=== PATIENT | male | born 1965 | race Caucasian/White ===

== ENCOUNTER 2020-01-21 07:35 | Day surgery (SDC) | payer OTHER ==
[~2020-01-21] VITALS: Ht 190.5 cm; Wt 123.2 kg
[~2020-01-21 07:35] MED LIST: CYCLOBENZAPRINE10 MG PO; METHYLPREDNISOLO4 M1 PO
--- NOTE | 2020-01-21 08:08 | NUR ---
PRE-PROCEDURE CHECK IN COMPLETE. PT RESTING IN LOCKED AND LOWERED BED, CALL LIGHT WITHIN REACH. NO FURTHER REQUESTS AT THIS TIME.
--- NOTE | 2020-01-21 09:12 | NUR ---
01/21/20 0912 Keyona Rangel 0855- PT TO PACU IN SUPINE POSITION. PT RESPONDS TO TACTILE AND VERBAL STIMULI. PT SNORING AND REPOSITIONED. SP02 >90% ON 2 L O2 VIA NC. BREATHING EASY AND UNLABORED WITH REPOSITIONING. 0904- PT ENCOURAGED TO TAKE DEEP BREATHS. O2 TITRATED DOWN TO ROOM AIR SPO2 >90%. PT REPOSITIONED TO SF WITH PILLOWS TO AID WITH SNORING. PT DENIES PAIN NAUSEA OR DIZZINESS. 0910- PT ASKING ABOUT PROCEDURE, FALLS QUICKLY BACK TO SLEEP. SNORING STILL INTERMITTANT, REQUIRING PROMPTING TO TAKE DEEP BREATHGS. VSS. PT CONTINUES TO DENY PAIN NAUSEA OR DIZZINESS.
--- NOTE | 2020-01-21 09:56 | OR ---
[facility] [address] [place], [place] [address] Signed DATE OF OPERATION: 01/21/2020 SURGEON: Bernard Wiley MD PREOPERATIVE DIAGNOSIS: Screening. POSTOPERATIVE DIAGNOSES: 1. A 4 mm rectal polyps x3 at 15 cm, x1 at 14 cm and x1 at 8 cm. 2. A small internal hemorrhoid x1. 3. Kxai-dd-zqptmrcuzz indurated and swollen prostate gland. PROCEDURE: Colonoscopy with hot biopsy. ESTIMATED BLOOD LOSS: None. INDICATIONS: Augie is a 54-year-old gentleman, asked to see me for his initial screening colonoscopy. He gives no lower GI complaints. There is no family history of colon cancer or polyps. He reminded me that I did his 's colonoscopy a few years ago. Consequently, they are somewhat familiar to this whole process. In the office, I gave him a pamphlet on colonoscopy and we looked at that together along with the risks including, but not limited to gas bloating, crampy abdominal pain, bleeding, perforation requiring surgery, and missed diagnosis. We also discussed the need for IV conscious sedation. He does use some CBD oil and THC gummies. I think mainly for a sciatica pain. I explained to Augie that sometimes Versed and fentanyl are not enough to get people completely asleep. In that regard, they need monitored anesthesia care with propofol. That can require rescheduling. He had expressed understanding and wished to proceed. DESCRIPTION OF PROCEDURE: Augie was taken into our endoscopy suite and placed in the left lateral decubitus position. He was given a total of 11 mg of Versed and 200 mcg of fentanyl. Even then he was moving around and we had to have several nurses stand alongside the bed. Fortunately, he is very easy to pass the scope. We made it almost into the cecum itself. However, he was pushing back with his abdomen and we simply could not get the scope to pass any further even with sedation and abdominal compression. Overall, his prep was good. He had a little bit of liquid stool in the cecum as is common. That is the only area, I could not directly visualize. It would be less than 10% of the cecum Electronically Signed By: BERNARD WILEY MD 01/21/20 0956 PATIENT NAME: LUCERO ALVAREZ OPERATIVE REPORT DATE OF : 67 REPORT #: [id number] PHYSICIAN: BERNARD WILEY MD PCP: ALOK TAYLOR MD REPORT IS CONFIDENTIAL AND NOT TO BE RELEASED WITHOUT AUTHORIZATION [facility] [address] [place], [place] [address] Signed itself. We could easily see the ileocecal valve. We had taken pictures throughout for photodocumentation. The scope was then slowly withdrawn. The colon itself was unremarkable. He had 5 small polyps removed in his rectum, all placed into one jar. Upon retroflexion of scope, he has a small internal hemorrhoid columns. On digital rectal exam, he does have a rubz-lo-vbzawyvjcv indurated and swollen prostate gland. After this, the gas had been suctioned out and the colonoscope removed. Overall, Augie tolerated the procedure well. RECOMMENDATIONS: I will see just back in my office in 7 to 14 days to review his results. In the future, he needs monitored anesthesia care with propofol. Bernard Wiley MD ALB/MODL /[id number] cc: MD Bernard Montero MD Copies: ALOK TAYLOR DMD, ANDREW L MD ~ Electronically Signed By: BERNARD WILEY MD 01/21/20 0956 PATIENT NAME: LUCERO ALVAREZ OPERATIVE REPORT DATE OF : 67 REPORT #: [id number] PHYSICIAN: BERNARD WILEY MD PCP: ALOK TAYLOR MD REPORT IS CONFIDENTIAL AND NOT TO BE RELEASED WITHOUT AUTHORIZATION
--- NOTE | 2020-01-25 16:16 | PATH ---
[facility] [address] [place], [place] [address] Signed SPECIMEN(S): A RECTAL POLYP SPECIMEN SOURCE: A. RECTAL POLYP CLINICAL HISTORY: Screening. DX: Internal hemorrhoids, polyps. Colonoscopy with possible biopsy and/or polypectomy. MICROSCOPIC DESCRIPTION: Histologic sections of all submitted blocks are examined by light microscopy. These findings, together with the gross examination, support the pathologic diagnosis. FINAL PATHOLOGIC DIAGNOSIS: Rectum, polyp, polypectomy: - Fragments of hyperplastic polyp. - Negative for dysplasia or malignancy. NAL:cml:C2NR GROSS DESCRIPTION: The specimen, labeled "Devin Alvarez, #1," and designated on the requisition "rectal polyp," is received in formalin and consists of five sauceda soft tissue fragments that measure 0.3-0.4 cm in greatest dimension. The specimen is entirely submitted in cassette (A1). FB (under the direct supervision of a pathologist) The Gross Description was prepared using a voice recognition system. The report was reviewed for accuracy; however, sound-alike word errors, addition and/or deletions may occur. If there is any question about this report, please contact Client Services. PERFORMING LABORATORY: The technical component was performed by [facility], [address] [place] [id number] (Ventilation Worker: Wandy Boyd MD; CLIA# [id number]). [facility], [address] [address] (CLIA# [id number]). Diagnostician: Janel Morrow MD Pathologist Electronically Signed 01/25/2020 PATIENT NAME: LUCERO ALVAREZ PATHOLOGY DATE OF : 67 REPORT #: [id number] PHYSICIAN: KADIE PATHOLOGY PCP: ALOK TAYLOR MD REPORT IS CONFIDENTIAL AND NOT TO BE RELEASED WITHOUT AUTHORIZATION [address] [place], [place] [address] Signed Copies: ~ PATIENT NAME: LUCERO ALVAREZ PATHOLOGY DATE OF : 67 REPORT #: [id number] PHYSICIAN: [facility] PCP: ALOK TAYLOR MD REPORT IS CONFIDENTIAL AND NOT TO BE RELEASED WITHOUT AUTHORIZATION
== END 2020-01-21 09:58 | disposition home or self-care (01) ==
LOC: OPS 07:35 → DS 07:35 → OPS 08:45 → DS 09:45 → OPS 09:58
PROVIDERS: ATTEND Colon & Rectal Surgery
PROC: 0DBP8ZX Excision of Rectum, Via Natural or Artificial Opening Endoscopic, Diagnostic (ICD-10-PCS; principal; 2020-01-21 08:45)
DX: Z12.11 Encounter for screening for malignant neoplasm of colon (principal); K62.1 Rectal polyp; K64.8 Other hemorrhoids; N41.9 Inflammatory disease of prostate, unspecified; I10 Essential (primary) hypertension; M19.90 Unspecified osteoarthritis, unspecified site; Z86.19 Personal history of other infectious and parasitic diseases; Z79.52 Long term (current) use of systemic steroids; Z79.899 Other long term (current) drug therapy
CPT/HCPCS: 88305; 99153; G0500; J2250; J3010; J7121

== ENCOUNTER 2024-08-20 10:05 | Emergency (ER) | payer SELFPAY ==
[~2024-08-20] VITALS: Ht 190.5 cm; Wt 119.8 kg
[2024-08-20 10:22] LABS: BASOPHILS 0.6 % (0.2-1.2); EOSINOPHILS 0.6 % (0.8-7.0); HEMATOCRIT 46.9 % (40.1-51.0); HEMOGLOBIN 15.8 g/dL (13.7-17.5); LYMPHOCYTES 18.3 % (21.8-53.1); MCHC 33.7 g/dL (32.3-36.5); MCV 86.2 fL (79.0-92.2); MONOCYTES 5.5 % (5.3-12.2); NEUTROPHILS 74.7 % (34.0-67.9); PLATELET COUNT 286 K/uL (163-337); RBC 5.44 M/uL (4.63-6.08)
[2024-08-20 10:33] LABS: INR 1.06 (0.80-1.30); PROTIME 13.4 Sec (11.2-14.2)
[2024-08-20 10:44] LABS: ALBUMIN 4.4 g/dL (3.4-5.0); ALBUMIN/GLOBULIN RATIO 1.13 (1.1-2.4); BUN/CREATININE RATIO 15.53 (6.0-28.6); CALCIUM 9.4 mg/dL (8.5-10.1); CREATININE, SERUM 1.03 mg/dL (0.70-1.30); MAGNESIUM 1.8 mg/dL (1.8-2.4); PROTEIN, TOTAL 8.3 g/dL (6.4-8.2)
[2024-08-20 12:05] VITALS: BP 150/99
--- NOTE | 2024-08-22 10:10 | EKG ---
[facility] [address] [facility] [place] [address] Signed Sinus bradycardia Right bundle branch block Abnormal ECG No previous ECGs available Confirmed by Chilango Beck DO ([id number]) on 08/22/2024 10:10:38 AM Electronically Signed By: CHILANGO BECK DO 08/22/24 1010 PATIENT NAME: LUCERO ALVAREZ MICHELLE Electrocardiogram DATE OF : 67 PHYSICIAN: CHILANGO BECK DO REPORT #: [id number] REPORT IS CONFIDENTIAL AND NOT TO BE RELEASED WITHOUT AUTHORIZATION
== END 2024-08-20 12:05 | disposition home or self-care (01) ==
LOC: ED 10:05
PROVIDERS: Emergency Medicine
DX: K80.10 Calculus of gallbladder with chronic cholecystitis without obstruction (principal); Z87.891 Personal history of nicotine dependence
CPT/HCPCS: 36415; 71045; 76705; 80053; 83735; 84484; 85025; 85610; 93005; 93010; 99284-25

== ENCOUNTER 2024-08-21 07:01 | Inpatient (IN) | payer SELFPAY ==
[~2024-08-21] VITALS: Ht 190.5 cm; Wt 118.9 kg
[2024-08-21] VITALS (7 sets, daily range): BP systolic 120–137; BP diastolic 73–80
--- OUTSIDE RECORDS SUMMARY | 2024-08-21 07:07 | XMS ---
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 Jose has no Care Guidelines for this patient. Melissa VISIT COUNT (12 MO.) 2 [facility]. TOTAL 2 NOTE: Visits indicate total known visits. ED/[facility] VISIT TRACKING (12 MO.) 08/21/2024 07:[address] [facility] [address] [facility] [place] TYPE: Emergency COMPLAINT: - PANIC ATTACK 08/20/2024 10:05 [facility] [place] TYPE: Emergency COMPLAINT: - ABDOMINAL PAIN INPATIENT VISIT TRACKING (12 MO.) No inpatient visits to display in this time frame [email or web address]
[2024-08-21] MEDS ORDERED: HYDROmorphone HCL 1 MG/ML SYR IV PRN ×2 (07:15→09:30)
[2024-08-21] MEDS ORDERED: SODIUM CHLORIDE 0.9% 1,000 ML IV ONE (07:15)
[2024-08-21] MEDS ORDERED: ondansetron HCL 4 MG/2 ML VIAL IV ONE (07:15)
[2024-08-21 07:21] LABS: BASOPHILS 0.8 % (0.2-1.2); HEMATOCRIT 47.1 % (40.1-51.0); HEMOGLOBIN 16.4 g/dL (13.7-17.5); LYMPHOCYTES 28.7 % (21.8-53.1); MCHC 34.8 g/dL (32.3-36.5); MCV 83.4 fL (79.0-92.2); MONOCYTES 7.3 % (5.3-12.2); NEUTROPHILS 61.9 % (34.0-67.9); PLATELET COUNT 341 K/uL (163-337); RBC 5.65 M/uL (4.63-6.08)
[2024-08-21] MEDS ORDERED: HYDROmorphone HCL 1 MG/ML SYR IV ONE (07:30)
[2024-08-21 07:36] LABS: ALBUMIN 4.5 g/dL (3.4-5.0); ALBUMIN/GLOBULIN RATIO 1.15 (1.1-2.4); ANION GAP 17.2 (7-21); BILIRUBIN, TOTAL 1.1 mg/dL (0.2-1.0); BUN/CREATININE RATIO 13.76 (6.0-28.6); CALCIUM 9.9 mg/dL (8.5-10.1); CREATININE, SERUM 1.09 mg/dL (0.70-1.30); POTASSIUM 3.2 mmol/L (3.5-5.1); PROTEIN, TOTAL 8.4 g/dL (6.4-8.2)
[2024-08-21 08:19] LABS: BILIRUBIN, URINE NEGATIVE (negative); BLOOD/HGB, URINE TRACE-I (Negative); KETONE, URINE SMALL (Negative); LEUK ESTERASE, URINE NEGATIVE (negative); NITRITE, URINE NEGATIVE (negative); PH, URINE 6.5 (5-7)
[2024-08-21 08:27] LABS: WHITE BLOOD CELLS, URINE 0-1 /HPF (0-5)
[2024-08-21 08:28] LABS: BACTERIA, URINE NONE SEEN /hpf (negative); CASTS, URINE NONE SEEN \\lpf; COLLECTION TYPE, URINE CLEAN CATCH; CRYSTALS, URINE NONE SEEN (0-1+); EPITHELIAL CELLS, URINE 0 /lpf (0-1+); REFLEX CULTURE, URINE No (No)
[2024-08-21] MEDS ORDERED: CEFAZOLIN SODIUM 2 GM/20 ML SYR IV ONE ×2 (09:30→12:15)
[2024-08-21] MEDS ORDERED: LACTATED RINGER'S 1,000 ML IV SCH ×3 (09:30→14:00)
[2024-08-21] MEDS ORDERED: FAMOTIDINE 20 MG/ 2 ML VIAL IV ONE ×2 (09:30→12:15)
[2024-08-21] MEDS ORDERED: ondansetron HCL 4 MG/2 ML VIAL IV PRN ×2 (09:30→14:00)
--- NOTE | 2024-08-21 10:30 | NUR ---
THIS PATIENT ARRIVED UP TO FLOOR BY ER STAFF, VIA STRETCHER. PT ABLE TO AMBULATE TO THE BED FROM STRETCHER. IV FLUSHES WELLL, NO PAIN. VS STABLE, HR LOW BUT THAT IS BEEN IN THE ER WELL, PT REPORTS HR/BP ARE ON LOWER END WELL. PT SIGNIFICANT OTHER PRESENT AT BEDSIDE, OFFERED WARM BLANKETS/DRINKS TO HER AND DELINED. PT COMFORTABLE, DENIES PAIN, NAUSEA. ON RA AT THIS TIME. PRIMARY RN GIVEN REPORT AND PT RESTING IN BED, CALL LIGHT WITHIN REACH.
--- NOTE | 2024-08-21 10:40 | NUR ---
REPORT RECEIVED FROM BELLA VALDEZ RN.
--- NOTE | 2024-08-21 11:00 | NUR ---
INTO SEE PATIENT. PERSONAL HEALTH INFORMATION REVIEWED. PATIENT LIVES IN A HOME WITH . PATIENT HAS A CANE AT HOME. DOES NOT USE OXYGEN OR A CPAP. DRIVES AT BASELINE. PATIENT DOES NOT HAVE A PCP. WILL SEND CHART TO CLINIC. PATIENT DOES NOT HAVE INSURANCE. CALLED [employer] TO COME DOWN AND GIVE FINANICAL AID PACKET TO. NO FUTHER CM NEEDS.
--- NOTE | 2024-08-21 11:05 | NUR ---
MED REC COMPLETE
--- NOTE | 2024-08-21 11:23 | NUR ---
PATIENT IS LYING IN BED WITH HOB ELEVATED. PATIENT IS LOOKING ON THEIR PHONE. PATIENT WITH A VISITOR SITTING ON THE COUCH. PATIENT STATED NO NEEDS AT THIS TIME AND REPORTS "FEELING GOOD GIVEN THE CIRCUMSTANCES". CALL LIGHT AND PERSONAL BELONGINGS ARE WITHIN REACH.
--- NOTE | 2024-08-21 12:30 | NUR ---
1200 MEDICATIONS ADMINISTERED PER THE EMAR. PATIENT WITH A VISITOR SITTING IN THE RECLINER AT BEDSIDE. WARM BLANKET PROVIDED TO THE VISITOR BY LEISA STRICKLAND. FULL ASSESSMENT COMPLETE AND DOCUMENTED IN THE CHART. PATIENT IS ALERT AND ORIENTED TIMES FOUR. PATIENT IS INDEPENDENT IN THE ROOM. CARDIAC WITH NORMAL S1 AND S2 ON AUSCULTATION. PATIETN REPORTS HAVE LOW HR AT BASELINE. RADIAL AND PEDAL PULSES ARE STRONG BILATERALLY. BUE HAVE TINGLING AND THE BLE HAVE NUMBNESS AND TINGLING AT BASELINE. NO EDEMA NOTED. CAPILLARY REFILL IN THE UPPER AND LOWER EXTREMITIES ARE LESS THAN 3 SECONDS. IV SITE FLUSHED WITH 10 ML NORMAL SALINE. IV DRESSING IS CLEAN, DRY, AND INTACT. LR IS INFUSING AT 85 ML/HR. PATIENT WITH NO COMPLAINTS OF PAIN OR NAUSEA. PATIENT IS NPO AND BOWEL TONES ARE ACTIVE IN ALL FOUR QUADRANTS. PATIENT IS ON ROOM AIR AND LUNG SOUNDS ARE CLEAR THROUGHOUT. SCATTERED TATTOOS NOTED. PATIENT STATED NO FURTHER NEEDS AT THIS TIME. CALL LIGHT AND PERSONAL BELONGINGS ARE WITHIN REACH.
--- NOTE | 2024-08-21 13:07 | NUR ---
PATIENT IS LYING IN BED WITH HOB. PATIENT WITH EYES OPEN AND RESPIRATIONS ARE EVEN AND UNLABORED. PATIENT WITH TWO VISITORS IN THE ROOM AT THIS TIME. PATIENT STATED NO FURTHER NEEDS. CALL LIGHT AND PERSONAL BELONGINGS ARE WITHIN REACH.
--- NOTE | 2024-08-21 13:23 | NUR ---
PATIENT IS IN BED AT THIS TIME, ISIN ROOM WITH HIM, SAFETY SECURITY OFFICER CHARTED VITALS AND NPO NO OUTPUT SINCE HE HAS BEEN HERE YET. CALL LIGHT WITH IN REACH AND NOTHING ELSE NEEDED AT THIS TIME.
--- NOTE | 2024-08-21 13:50 | NUR ---
GAVE THIS RN VERBAL ORDER TO KEEP PATIENT NPO DUE TO THE POTENTIAL FOR SURGERY.
[2024-08-21] MEDS ORDERED: FAMOTIDINE 20 MG/ 2 ML VIAL IV SCH ×2 (13:58→21:00)
[2024-08-21] MEDS ORDERED: CEFAZOLIN SODIUM 2 GM/20 ML SYR IV SCH (14:00)
[2024-08-21] MEDS ORDERED: PROCHLORPERAZINE EDISYLATE 10 MG/2 ML VIAL IV PRN (14:00)
[2024-08-21] MEDS ORDERED: KETOROLAC TROMETHAMINE 30 MG/ML VIAL IV PRN (14:00)
[2024-08-21] MEDS ORDERED: MORPHINE SULFATE 10 MG/ML VIAL IV PRN (14:00)
--- NOTE | 2024-08-21 14:10 | NUR ---
GALLBLADDER BOOK TAKEN TO THE PATIENT AT THIS TIME. PATIENT IV POLE UNPLUGGED AND PATIENT IS USING THE BATHROOM. PATIENT EDUCATED TO CALL WHEN COMPLETE TO KEEP TRACK OF OUTPUT. PATIENT EXPRESSED UNDERSTANDING AND NO FURTHER NEEDS.
--- NOTE | 2024-08-21 15:01 | NUR ---
PATIENT IS LYING IN BED WITH HOB ELEVATED. PATIENT WITH EYES OPEN AND RESPIRATIONS ARE EVEN AND UNLABORED. PATIENT IS ON THEIR PHONE. CALL LIGHT AND PERSONAL BELONGINGS ARE WITHIN REACH.
--- NOTE | 2024-08-21 15:55 | NUR ---
REPORT RECEIVED FROM JOSEPHINE DE LA FUENTE. THIS RN INTRODUCED HERSELF TO THE PT. PT SITTING UP IN BED WITH NO REQUESTS AT THIS TIME. PT DENIES PAIN AND NAUSEA AT THIS TIME. CALL LIGHT WITHIN REACH.
--- NOTE | 2024-08-21 18:06 | NUR ---
PATIENT IS IN HIS BED AT THIS TIME, BACKHAUL DRIVER CHARTED VITALS AND I&O'S, CALL LIGHT WITH IN REACH, IN ROOM. NOTHING ELSE NEEDED AT THIS TIME.
--- NOTE | 2024-08-21 18:34 | NUR ---
Patient resting in bed with visitor in room. Education provided regaurding cholysistitis procedure. Patients questions were answered. No request or needs at this time. Call light at reach.
--- NOTE | 2024-08-21 19:44 | NUR ---
REPORT RECEIVED FROM DAY SHIFT RN. PT RESTING IN BED. PT DENIES ANY PAIN OR DISCOMFORT AT THIS TIME. SAFETY PRECAUTIONS MAINTAINED. CALL LIGHT WITHIN REACH. WILL CONTINUE TO MONITOR.
--- NOTE | 2024-08-21 20:45 | NUR ---
PT ASSESSED AND MEDICATIONS GIVEN. PT DENIES ANY PAIN. IVF INFUSING PER ORDER. PT NPO IN PREPARATION FOR SURGERY TOMORROW. PT UP INDEPENDENTLY TO BATHROOM, GOOD OUTPUT NOTED. SAFETY PRECAUTIONS MAINTAINED. CALL LIGHT WITHIN REACH. WILL CONITNUE TO MONITOR.
[2024-08-22] VITALS (12 sets, daily range): BP systolic 129–164; BP diastolic 70–97
--- NOTE | 2024-08-22 00:17 | NUR ---
PT RESTING IN BED WTIH EYES CLOSED. IVF INFUSING PER ORDERS. SAFETY PRECAUTIONS MAINTAINED. CALL LIGHT WTIHIN REACH. WILL CONTINUE TO MONITOR.
--- NOTE | 2024-08-22 01:43 | NUR ---
MAINTENANCE CUSTODIAN OBTAINED VITALS. PT STATES NO FURTHER NEEDS AT THIS TIME. CALL LIGHT WITHIN REACH.
[2024-08-22 05:20] LABS: BASOPHILS 0.8 % (0.2-1.2); EOSINOPHILS 1.9 % (0.8-7.0); HEMATOCRIT 46.5 % (40.1-51.0); HEMOGLOBIN 15.7 g/dL (13.7-17.5); LYMPHOCYTES 23.4 % (21.8-53.1); MCH 29.2 PG (25.7-32.2); MCHC 33.8 g/dL (32.3-36.5); MCV 86.4 fL (79.0-92.2); MONOCYTES 7.2 % (5.3-12.2); NEUTROPHILS 66.3 % (34.0-67.9); PLATELET COUNT 268 K/uL (163-337); RBC 5.38 M/uL (4.63-6.08)
[2024-08-22 05:39] LABS: ALBUMIN 3.8 g/dL (3.4-5.0); ANION GAP 11.2 (7-21); BILIRUBIN, TOTAL 1.4 mg/dL (0.2-1.0); BUN/CREATININE RATIO 11.22 (6.0-28.6); CALCIUM 9.3 mg/dL (8.5-10.1); CREATININE, SERUM 0.98 mg/dL (0.70-1.30); POTASSIUM 4.2 mmol/L (3.5-5.1); PROTEIN, TOTAL 7.6 g/dL (6.4-8.2)
--- NOTE | 2024-08-22 05:51 | NUR ---
PT RESTED SOME DURING THE SHIFT. VSS. PT REMAINED NPO IN PREPARATION FOR SURGERY TODAY. SURGERY BATH COMPLETED THIS AM. PT DENIED ANY PAIN OR NAUSEA DURING THE SHIFT. IVF INFUSING PER ORDER. IV ABX GIVEN. SAFETY PRECAUTIONS MAINTAINED. CALL LIGHT WITHIN REACH. WILL CONTINUE TO MONITOR.
--- NOTE | 2024-08-22 07:15 | NUR ---
RECIEVED REPORT FROM LEISA JEONG. ASSUMING CARE OF PT WITH LEISA STRICKLAND.
[2024-08-22] MEDS ORDERED: SODIUM CHLORIDE 0.9% 40 ML IV ONE (08:31)
[2024-08-22] MEDS ORDERED: iopamidoL 30 ML VIAL ONE (08:31)
--- NOTE | 2024-08-22 08:50 | NUR ---
PT OFF UNIT FOR OPERATION.
[2024-08-22] MEDS ORDERED: fentaNYL citrate 100 MCG/2 ML VIAL ONE ×3 (08:57→10:26)
[2024-08-22] MEDS ORDERED: KETAMINE in NS 50 MG/5 ML SYR ONE (08:58)
[2024-08-22] MEDS ORDERED: ondansetron HCL 4 MG/2 ML VIAL ONE (09:00)
[2024-08-22] MEDS ORDERED: dexmedeTOMIDine HCl 200 MCG/2 ML VIAL ONE (09:00)
[2024-08-22] MEDS ORDERED: ACETAMINOPHEN 1,000 MG/100 ML VIAL ONE (09:00)
[2024-08-22] MEDS ORDERED: ROCURONIUM BROMIDE 50 MG/5 ML SYR ONE ×2 (09:00→09:23)
[2024-08-22] MEDS ORDERED: propofoL 200 MG/20 ML VIAL ONE ×2 (09:00→10:27)
[2024-08-22] MEDS ORDERED: LIDOCAINE HCL 2% 5 ML SDV ONE (09:00)
[2024-08-22] MEDS ORDERED: DEXAMETHASONE SOD PHOS 4 MG/ML VIAL ONE (09:00)
[2024-08-22] MEDS ORDERED: SODIUM CHLORIDE 0.9% 20 ML IV ONE (09:19)
[2024-08-22] MEDS ORDERED: CEFAZOLIN SOD 1,000 MG/10 ML VIAL ONE (09:19)
[2024-08-22] MEDS ORDERED: SEVOFLURANE 250 ML BTL INH ONE (09:48)
[2024-08-22] MEDS ORDERED: GLYCOPYRROLATE 1 MG/5 ML MDV ONE (09:57)
[2024-08-22] MEDS ORDERED: fentaNYL citrate 50 MCG/ML SDV IV PRN (10:00)
[2024-08-22] MEDS ORDERED: HYDROmorphone HCL 1 MG/ML SYR IV PRN (10:00)
[2024-08-22] MEDS ORDERED: NALOXONE HCL 0.4 MG SYR IV PRN (10:00)
[2024-08-22] MEDS ORDERED: IBLOOD GLUCOSE TEST STRIP 1 EA TEST VI PRN (10:00)
[2024-08-22] MEDS ORDERED: ondansetron HCL 4 MG/2 ML VIAL IV PRN (10:00)
[2024-08-22] MEDS ORDERED: SUGAMMADEX SODIUM 200 MG/2 ML ML ONE (10:12)
--- NOTE | 2024-08-22 10:13 | EKG ---
[facility] [address] [facility] [place] [address] Signed Sinus bradycardia Incomplete right bundle branch block Borderline ECG When compared with ECG of 20-AUG-2024 10:17, (Unconfirmed) Incomplete right bundle branch block has replaced Right bundle branch block Confirmed by Chilango Beck DO ([id number]) on 08/22/2024 10:12:49 AM Electronically Signed By: CHILANGO BECK DO 08/22/24 1013 PATIENT NAME: SAHILRADHALUCEROTERRANCE MARTINEZ Electrocardiogram DATE OF : 67 PHYSICIAN: CHILANGO BECK DO REPORT #: [id number] REPORT IS CONFIDENTIAL AND NOT TO BE RELEASED WITHOUT AUTHORIZATION
[2024-08-22] MEDS ORDERED: KETOROLAC TROMETHAMINE 30 MG/ML VIAL IV ONE (10:45)
[2024-08-22] MEDS ORDERED: LORazepam 2 MG/ML VIAL IV ONE (11:15)
--- NOTE | 2024-08-22 11:26 | NUR ---
08/22/24 1126 PAUL ESPINAL 1037 PT ARRIVES TO PACU VIA STREACHER FROM OR. PT AWAKE BUT DROWESY. PT HAS NATURAL AIREWAY. PT HAS 6L OF OXYGEN VIA FACE MASK. ALL MONITORS ATTACHED. IV ASSESSED. VITALS TAKEN. 1041 PT REPORTS 2/10 PAIN BUT SEEMS UNCOMFORTABLE AND WRITHING IN BED. 1045 PAIN MEDICATION GIVEN PER EMAR. 1050 pt reports 5/10 for pain pt states that his tolerable pain is 3/10. 1055 pain medication given per emar. 1059 OXYGEN REMOVED PT ON RA, O2 SAT STAYING ABOVE 96% ON RA. 1109 PT STATES THAT PAIN HAS COME DOWN TO A 3.5. PT STILL VISABLLY UNCOMFORTABLE, TAKING DEEP BREATHS STATING HIS PAIN IS STILL VERY THERE. 1112 VERBAL ORDER TAKEN FROM DR ACEVES FOR 1 MG ATIVAN TO BE GIVEN ONCE NOW. 1114 PT REPORTS 3/10 PAIN AND IS 'FEELING BETTER' 1119 ATIVAN GIVEN PER ORDER 1125 PT STATES HE IS MORE COMFORTABLE AND LOOKS VISIBALLY MORE COMFRORTABLE. PT NO LONG WRITING IN BED.
--- NOTE | 2024-08-22 11:35 | NUR ---
PT BACK TO ROOM, REPORT RECIEVED FROM LEISA MILLER. PT STATES PAIN IS 2-3/10 AT THIS TIME, STATES "I AM VERY SENSITIVE TO PAIN", REQUESTS TYLENOL OR IBUPROPHEN WHEN AVAILABLE, GIVEN. VSS. PT DROWSY, AWAKENS W/O DIFFICULTY TO VOICE. PT AT THE BEDSIDE. CALL LIGHT WITHIN REACH. SCDs IN PLACE. WHILE PT RESTING WITH EYES CLOSED, CPOX BEGINS ALARMING D/T O2 SATURATION <87%, PT PLACED ON 1L O2 VIA NC, O2 REMAINS <90%, O2 VIA NC MOVED UP TO 2L, O2 SATURATION >90% AT THIS TIME.
[2024-08-22] MEDS ORDERED: IBUPROFEN600 MG PO (11:57)
[2024-08-22] MEDS ORDERED: ACETAMINOPHEN500 MG PO (11:58)
[2024-08-22] MEDS ORDERED: HYDROMORPHONE HC4 MG PO (11:58)
[2024-08-22] MEDS ORDERED: ONDANSETRON ODT8 MG PO (11:59)
[2024-08-22] MEDS ORDERED: ATIVAN1 MG PO (11:59)
[2024-08-22] MEDS ORDERED: ACETAMINOPHEN 500 MG TAB PO PRN (12:00)
[2024-08-22] MEDS ORDERED: IBUPROFEN 600 MG TAB PO PRN (12:00)
[2024-08-22] MEDS ORDERED: HYDROmorphone HCL 4 MG TAB PO PRN (12:00)
[2024-08-22] MEDS ORDERED: LORazepam 2 MG/ML VIAL IV PRN (12:00)
--- NOTE | 2024-08-22 12:11 | NUR ---
PT EATS SMALL AMOUNT OF PUDDING AND ICE CHIPS, STATES NO FURTHER NEEDS AT THIS TIME, CALL LIGHT WITHIN REACH, AT THE BEDSIDE, PT REMAINS ON 2L O2 VIA NC WITH CPOX SHOWING >92% O2 SATURATION, PT BEGINS RESTING WITH EYES CLOSED.
--- NOTE | 2024-08-22 12:45 | NUR ---
POST OP VITALS TAKEN. PATIENT DROWSY AT THIS TIME, AT BEDSIDE. PATIENT STATES "PAIN TOLERABLE" RATES PAIN TO ABDOMEN 2/10. STERI STRIPS TO ABD LAP SITES WITH SCANT SANGUANOUS DRAINAGE. NO NEEDS AT THIS TIME. CALL LIGHT AT BEDSIDE.
--- NOTE | 2024-08-22 14:08 | NUR ---
PT RESTING IN BED. STATES PAIN TO ABD IS 2/10 AND TOLERABLE AT THIS TIME. STERI STRIPS TO LAP SITES WITH SCANT DRAINAGE. PT HAS TAKEN PUDDING X2 ORALLY AND HAS TOLERATED WELL. CALL LIGHT WITHIN REACH.
--- NOTE | 2024-08-22 14:17 | NUR ---
IV SITE FLUSHED WITH 10 ML NORMAL SALINE AND IS SALINE LOCKED. IV DRESSING IS CLEAN, DRY, AND INTACT. IV PUMP CLEARED OF INTAKE FLUID. PATIENT IS LYING IN BED WITH HOB ELEVATED. PATIENT WITH EYES CLOSED AND RESPIRATIONS ARE EVEN AND UNLABORED. PATIENT IS ON ROOM AIR AND THE SPO2 IS 93%. CPOX AT BEDSIDE. CALL LIGHT AND PERSONAL BELONGINGS ARE WITHIN REACH.
--- NOTE | 2024-08-22 15:00 | NUR ---
PATIENT TOLERATED OLTMEAL WELL. NO NAUSIA AT THIS TIME. PRN TYLENAL GIVEN DUE TO PATIENTS REQUEST. NO NEEDS AT THIS TIME. WILL CONTINUE TO MONITOR. CALL LIGHT AT REACH.
--- NOTE | 2024-08-22 15:10 | NUR ---
PT UP TO RESTROOM WITH SBA, VOIDS W/O DIFFICULTY. PT BACK TO BED, STATES HE WOULD LIKE TO DC THIS EVENING. PT STATES NO FURTHER NEEDS AT THIS TIME, CALL LIGHT WITHIN REACH.
--- NOTE | 2024-08-22 19:44 | NUR ---
REPORT RECEIVED FROM DAY SHIFT RN. PT LYING IN BED ALERT AND ORIENTED. SMALL AMOUNT SEROSANG DRAINAGE NOTED FROM UMBILICUS. SKIN CLEANED. GAUZE APPLIED. PT TO GET DRESSED, WAITING ON 'S RETURN FOR DISCHARGE. NO FURTHER NEEDS. CALL LIGHT IN REACH. WHITE BOARD UPDATED.
--- NOTE | 2024-08-23 14:30 | OR ---
[facility] [address] [place], [place] [address] Signed DATE OF OPERATION: 08/22/2024 SURGEON: Josefa Aceves MD PREOPERATIVE DIAGNOSIS: Acute calculous cholecystitis. POSTOPERATIVE DIAGNOSIS: Acute calculous cholecystitis. PROCEDURES: 1. Laparoscopic cholecystectomy with intraoperative cholangiogram. 2. Surgeon-directed fluoroscopy. ANESTHESIA: General endotracheal, Sean Lyn, LIFE TRAINER and local 10 mL of 0.25% Marcaine with epinephrine. INDICATION: This 59-year-old white man was seen in the emergency room two days ago with epigastric and right subcostal pain, and gallbladder ultrasound confirmed gallstones. He had no pericholecystic fluid. Dr. Jacques, emergency room physician, discharged him and the patient returned to the ER approximately 24 hours later yesterday with the same and worsening symptoms. At this point, he had persistent epigastric and right subcostal tenderness. I admitted him directly to the hospital. He has been given fluid resuscitation including IV antibiotics, parenteral pain medications, so forth and now is prepared to undergo cholecystectomy preferred by laparoscopic approach. The risk of bleeding, infection, bile duct injury, need for open procedure and other unforeseen complications was reviewed in detail. He understands and wished to proceed. FINDINGS: Indeed the gallbladder was inflamed and distended. Cholangiogram was normal. The cystic duct was quite small. The liver was normal. The gallbladder once opened showed a thick tarry black bile and a "cholesterol solitaire" that had fractured, but was quite large and essentially at least 2/3 the size of the gallbladder proper. There is no evidence of malignancy. DESCRIPTION OF PROCEDURE: The patient was brought to the operating room, given a general endotracheal anesthetic. Preoperative antibiotic Ancef was re-dosed in the operating room. Sequential Electronically Signed By: JOSEFA ACEVES MD 08/23/24 1430 PATIENT NAME: LUCERO ALVAREZ OPERATIVE REPORT DATE OF : 67 REPORT #: [id number] PHYSICIAN: JOSEFA ACEVES MD PCP: NO PRIMARY CARE PHYSICIAN REPORT IS CONFIDENTIAL AND NOT TO BE RELEASED WITHOUT AUTHORIZATION [facility] [address] [place], [place] [address] Signed compression device stockings were used. The abdomen was clipped and prepared with a chlorhexidine solution and draped sterilely. An infraumbilical incision was made and using an open Zeferino cannula technique, pneumoperitoneum was achieved to a level of 14 mmHg of carbon dioxide gas. Intraabdominal inspection showed no sign of ascites or carcinomatosis. The gallbladder was obscured from view initially. Three additional trocars were placed in usual configuration in the subxiphoid, right midclavicular, and right anterior axillary line. The gallbladder was grasped and elevated cephalad and found to be quite bulky and distended. The infundibulum was grasped and retracted laterally and using blunt and electrocautery dissection, the triangle of Calot was dissected free. Cystic arterial branches were identified. One area had a small amount of bleeding, which were secured with clips. Ultimately, the cystic duct was well defined from the surrounding soft tissue with a critical view of safety guiding the dissection. The cystic duct was surprisingly small. A clip was applied across gallbladder cystic duct junction and a small transverse choledochotomy made in the cystic duct. Egress of clear bile was noted. Using the Pelayo type cholangiocatheter, intraoperative cholangiography was undertaken showing free flow of contrast into the biliary tree with prompt emptying into the duodenum. The cystic duct was reasonably long. Unfortunately, due to technical issue, the photo plan for the record is delayed, but is certainly archived in the radiology fluoroscopy file. The cystic duct was triply clipped and divided. The gallbladder was dissected free in a retrograde fashion. Clips were applied to cystic arterial branches as necessary. The gallbladder was placed in an endobag and extracted through the infraumbilical port. This stone was so large within the bag of the endobag that it could not be extracted through the incision and it had to be an enlarged inferiorly. It was ultimately extracted, opened on the back table and found to have thick tar like bile within the gallbladder and a very large stone considered a "cholesterol solitaire," which had fractured into two pieces with extraction of the stone. There was no evidence of malignancy of the mucosa. Irrigation was undertaken in subhepatic space. There was no sign of bile leak, bleeding, or other problem. The trocars removed under direct visualization showing no sign of bleeding. The infraumbilical fascial incision was closed in a more elaborate way including interrupted 0 Vicryl suture and a running 0 PDS suture. Irrigation was undertaken copiously and skin closed with interrupted 3-0 Vicryl. Steri-Strips were applied to each site after closure with Vicryl. The patient was ultimately extubated and transferred to the recovery room in good condition having suffered no complications. Sponge, needle, and instrument counts reported as correct x3. Electronically Signed By: JOSEFA ACEVES MD 08/23/24 9717 PATIENT NAME: LUCERO ALVAREZ OPERATIVE REPORT DATE OF : 67 REPORT #: [id number] PHYSICIAN: JOSEFA ACEVES MD PCP: NO PRIMARY CARE PHYSICIAN REPORT IS CONFIDENTIAL AND NOT TO BE RELEASED WITHOUT AUTHORIZATION [facility] [address] [facility] [place], [place] [address] Signed Josefa Aceves MD /JACKIEL /[id number] cc: Dr. Jacques [facility] Copies: ~ Electronically Signed By: JOSEFA ACEVES MD 08/23/24 1430 PATIENT NAME: LUCERO ALVAREZ OPERATIVE REPORT DATE OF : 67 REPORT #: [id number] PHYSICIAN: JOSEFA ACEVES MD PCP: NO PRIMARY CARE PHYSICIAN REPORT IS CONFIDENTIAL AND NOT TO BE RELEASED WITHOUT AUTHORIZATION
--- NOTE | 2024-08-23 14:30 | HP ---
[facility] [address], [place] [address] Signed ADMISSION DATE: 08/21/2024 REASON FOR ADMISSION: Acute calculous cholecystitis. HISTORY: This 59-year-old white man is accompanied by his . He presented to the emergency room yesterday and was evaluated by Dr. Jacques with complaints of right upper abdominal and epigastric pain. Gallbladder ultrasound was performed, which showed gallstones. As the patient's symptoms had improved and he did not have other symptoms of progressive cholecystitis, he was discharged home. He returned to the emergency room and was evaluated by Dr. Jacques, noting pain in the right upper abdomen which was far more severe than yesterday. He has had some associated anxiety and hyperventilation with numbess of his lips and fingers, but this resolved entirely. PAST MEDICAL HISTORY: Notable for: 1. Hepatitis C for which he was treated with Harvoni with cure as hepatitis C he says was related to [place] and not related to IV drug abuse he says. 2. He also has underlying arthritis. SURGICAL HISTORY: Includes gynecomastia excision in childhood for benign disease. SOCIAL HISTORY: He is . He is accompanied by his . They have no children. 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 The patient notes he has no health insurance due to his cost. 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 REVIEW OF SYSTEMS: He denies any shortness of breath or chest pain. He has had no dysphagia or dysuria. He denies any hematemesis or blood per rectum. PHYSICAL EXAMINATION: GENERAL: Relatively large white man who does not look systemically toxic. VITAL SIGNS: Temperature is 97.1, pulse 55, blood pressure 189/112 initially, O2 saturation 100% on room air. NECK: Trachea is midline. CHEST: Clear. Electronically Signed By: JOSEFA ACEVES MD 08/23/24 1430 PATIENT NAME: LUCERO ALVAREZ HISTORY AND PHYSICAL DATE OF : 67 REPORT #: [id number] PHYSICIAN: JOSEFA ACEVES MD PCP: NO PRIMARY CARE PHYSICIAN REPORT IS CONFIDENTIAL AND NOT TO BE RELEASED WITHOUT AUTHORIZATION [facility] [address] [place] [id number] Signed HEART: Regular without murmur. ABDOMEN: Scaphoid. He does have tenderness in the right upper abdomen, but no palpable mass. He has no ascites. EXTREMITIES: Show no clubbing, cyanosis, or edema. LABORATORY STUDIES: Performed show a white count of 12.5, hematocrit 47.1. Chem profile normal except for decreased potassium at 3.2 and elevated glucose of 130. The patient has normal liver enzymes. It would appear bilirubin is 1.1. Urinalysis is essentially negative except for a few red cells per high-power field. His abdominal ultrasound report and images are reviewed, which shows a normal liver and normal right kidney. Does have at least some shadowing gallstones on imaging studies. ASSESSMENT: The patient has acute calculous cholecystitis. His symptoms were brewing yesterday and worsened overnight despite some improvement transiently upon observation initially. I discussed in detail with the patient and his the pathophysiology of biliary disease and recommendation of treatment to include cholecystectomy, preferably by laparoscopic approach. The risk of bleeding, infection, bile duct injury, need for open procedure, need for common duct exploration and so forth was all reviewed in detail. He understands and wishes to proceed. For the time being, he will be kept n.p.o., allowed clear liquid sips as needed for comfort. IV antibiotic Ancef. Sequential compression device stockings and subcutaneous Lovenox as appropriate. We will give a gallbladder owners manual as well, anticipating surgery either later tonight or tomorrow morning, the latter more likely. MD JANELL Murphy/MODL /[id number] cc: Dr. Jt Jacques Electronically Signed By: JOSEFA ACEVES MD 08/23/24 1430 PATIENT NAME: LUCERO ALVAREZ HISTORY AND PHYSICAL DATE OF : 67 REPORT #: [id number] PHYSICIAN: JOSEFA ACEVES MD PCP: NO PRIMARY CARE PHYSICIAN REPORT IS CONFIDENTIAL AND NOT TO BE RELEASED WITHOUT AUTHORIZATION [facility] [address], [place] [address] Signed Copies: ~ Electronically Signed By: JOSEFA ACEVES MD 08/23/24 1430 PATIENT NAME: ANTONIOLUCEROTERRANCE MARTINEZ HISTORY AND PHYSICAL DATE OF : 67 REPORT #: [id number] PHYSICIAN: JOSEFA ACEVES MD PCP: NO PRIMARY CARE PHYSICIAN REPORT IS CONFIDENTIAL AND NOT TO BE RELEASED WITHOUT AUTHORIZATION
== END 2024-08-22 19:57 | disposition home or self-care (01) | DRG 419 ==
LOC: ED 07:01 → MS 09:34 → ED 09:34 → MS 09:40
PROVIDERS: Emergency Medicine; ADMIT Surgery; ATTEND Surgery
PROC: BF121ZZ Fluoroscopy of Gallbladder using Low Osmolar Contrast (ICD-10-PCS; 2024-08-22)
PROC: 0FT44ZZ Resection of Gallbladder, Percutaneous Endoscopic Approach (ICD-10-PCS; principal; 2024-08-22 09:00)
DX: K80.00 Calculus of gallbladder with acute cholecystitis without obstruction (principal); M54.50 Low back pain, unspecified; G89.29 Other chronic pain; M19.90 Unspecified osteoarthritis, unspecified site; F41.9 Anxiety disorder, unspecified; R06.4 Hyperventilation; I45.10 Unspecified right bundle-branch block; Z86.19 Personal history of other infectious and parasitic diseases; Z87.891 Personal history of nicotine dependence; Z98.890 Other specified postprocedural states; Z79.891 Long term (current) use of opiate analgesic
CPT/HCPCS: 36415; 74300; 76705; 80053; 81001; 83690; 85025; 93005; 93010; 94762; A9270; J0131; J0690; J1100; J1171; J1885; J2003; J2060; J2405; J2704; J3010; J3490; J7030; J7121; Q9967